=== PATIENT | male | born 1990 | race Caucasian/White ===

== ENCOUNTER 2017-07-18 00:57 | Emergency (ER) | payer OTHER ==
[2017-07-18 01:09] VITALS: BMI 24.3
[2017-07-18 01:12] VITALS: O2SAT 100
[2017-07-18] MEDS ORDERED: Lidocaine/Epi 1% 1:100000 20 ML IJ STA (01:42)
[2017-07-18] MEDS ORDERED: TDAP Vaccine 0.5 mL Syr IM ONE (02:56)
[2017-07-18] MEDS ORDERED: Bacitracin Ointment 30 GM TUBE TOP STA (02:56)
[2017-07-18 03:24] VITALS: BP 110/68; PULSE 76; RESP 18
[2017-07-18 03:25] VITALS: TEMP 98.2
--- NOTE | 2017-07-18 04:47 | ED PDOC ---
Arrival/HPI - General Chief Complaint: Abnormal Skin Integrity Time Seen by Provider: 07/18/17 01:42 Historian: Patient - History of Present Illness Narrative History of Present Illness (Text): 07/18/17 04:43 26 year old male, with no significant past medical history, presents to the emergency department complaining of a laceration above his right eyebrow. Patient states he was elbowed while playing basketball. Patient denies any fever , chills, chest pain, shortness of breath, nausea, vomiting, diarrhea, urinary symptoms, back pain, neck pain, headache, dizziness, or any other complaints. Time/Duration: Prior to Arrival Symptom Onset: Sudden Symptom Course: Unchanged Activities at Onset: Light Context: Exertion Past Medical History - Provider Review Nursing Documentation Reviewed: Yes - Psychiatric Hx Substance Use: No Family/Social History - Physician Review Nursing Documentation Reviewed: Yes Family/Social History: Unknown Family HX Smoking Status: Never Smoked Hx Alcohol Use: No Hx Substance Use: No Allergies/Home Meds Allergies/Adverse Reactions: Allergies No Known Allergies Allergy (Verified 07/18/17 01:09) Home Medications: Home Meds Medication Instructions Recorded Confirmed No Known Home Med 07/18/17 07/18/17 Review of Systems - Physician Review All systems were reviewed & negative as marked: Yes - Review of Systems Constitutional: Normal Eyes: Normal ENT: Normal Respiratory: Normal. absent: SOB, Cough Cardiovascular: Normal. absent: Chest Pain Gastrointestinal: Normal. absent: Abdominal Pain, Diarrhea, Nausea, Vomiting Genitourinary Male: Normal. absent: Dysuria, Frequency, Hematuria, Urinary Output Changes Musculoskeletal: Normal. absent: Back Pain, Neck Pain Skin: Laceration (Rght eyebrow). absent: Rash Neurological: Normal. absent: Headache, Dizziness Endocrine: Normal Hemo/Lymphatic: Normal Psychiatric: Normal Physical Exam Vital Signs Reviewed: Yes Vital Signs Temp Pulse Resp BP Pulse Ox 07/18/17 03:24 98.2 F 76 18 110/68 100 07/18/17 01:10 98.3 F 70 16 102/65 100 Temperature: Afebrile Blood Pressure: Normal Pulse: Regular Respiratory Rate: Normal Appearance: Positive for: Well-Appearing, Non-Toxic, Comfortable Pain Distress: None Mental Status: Positive for: Alert and Oriented X 3 - Systems Exam Head: Present: Atraumatic, Normocephalic, Laceration (Right eyebrow) Pupils: Present: PERRL Extroacular Muscles: Present: EOMI Conjunctiva: Present: Normal Mouth: Present: Moist Mucous Membranes Neck: Present: Normal Range of Motion Respiratory/Chest: Present: Clear to Auscultation, Good Air Exchange. No: Respiratory Distress, Accessory Muscle Use Cardiovascular: Present: Regular Rate and Rhythm, Normal S1, S2. No: Murmurs Abdomen: No: Tenderness, Distention, Peritoneal Signs Back: Present: Normal Inspection Upper Extremity: Present: Normal Inspection. No: Cyanosis, Edema Lower Extremity: Present: Normal Inspection. No: Edema Neurological: Present: GCS=15, CN II-XII Intact, Speech Normal Skin: Present: Warm, Dry, Normal Color. No: Rashes Psychiatric: Present: Alert, Oriented x 3, Normal Insight, Normal Concentration Medical Decision Making ED Course and Treatment: 07/18/17 04:46 Impression: 26 year old male who presents to the emergency department complaining of a laceration above his right eyebrow Plan: -- Bacitracin -- Lidocaine -- TDAB Vaccine -- Reassess and disposition Progress Notes: PROCEDURE: LACERATION REPAIR Performed by the emergency provider Location: right eyebrow Length: 2 cm Description: "clean wound edges","no foreign bodies" Distal CMS: Normal. No deficits. Neurovascularly intact. Anesthesia: Lidocaine 1% Preparation: The wound was cleaned with NS and [place]. The area was prepped and draped in the usual sterile fashion. Exploration: The wound was explored and no foreign bodies were found. Procedure: The wound was closed with 5.0 nylon. There was {good / appropriate / adequate / loose} approximation. In total, 5 sutures were used. Post-Procedure: Good closure and hemostasis. The patient tolerated the procedure well and there were no complications. CSM remains intact. Post procedure dressing applied. Pt will follow up with PMD for suture removal. - Medication Orders Current Medication Orders: Discontinued Medications Bacitracin (Bacitracin) 1 gm TOP STAT STA Stop: 07/18/17 02:57 Last Admin: 07/18/17 03:17 Dose: 1 g Lidocaine/Epinephrine (Lidocaine/Epi 1% 1:224372 20 Ml) 7 ml IJ STAT STA Stop: 07/18/17 01:43 Tetanus/Reduced Diphtheria/Acell Pertussis (Boostrix Vaccine Inj) 0.5 ml IM .ONCE ONE Stop: 07/18/17 02:57 Last Admin: 07/18/17 03:14 Dose: 0.5 ml Immunization Registry Document 07/18/17 03:14 FIDENCIO (Rec: 07/18/17 03:14 FIDENCIO [id number]) Immunization Registry Consent Date 07/18/17 - Scribe Statement The provider has reviewed the documentation as recorded by the Scribe Kina Crespo All medical record entries made by the Scribe were at my direction and personally dictated by me. I have reviewed the chart and agree that the record accurately reflects my personal performance of the history, physical exam, medical decision making, and the department course for this patient. I have also personally directed, reviewed, and agree with the discharge instructions and disposition. Disposition/Present on Arrival - Present on Arrival Any Indicators Present on Arrival: No History of DVT/PE: No History of Uncontrolled Diabetes: No Urinary Catheter: No History of Decub. Ulcer: No History Surgical Site Infection Following: None - Disposition Have Diagnosis and Disposition been Completed?: Yes Diagnosis: Laceration of forehead Disposition: HOME/ ROUTINE Disposition Time: 03:00 Condition: IMPROVED Discharge Instructions (ExitCare): Laceration Repair With Stitches (DC) Additional Instructions: Thank you for letting us take care of you today. The emergency medical care you received today was directed at your acute symptoms. If you were prescribed any medication, please fill it and take as directed. It may take several days for your symptoms to resolve. Return to the Emergency Department if your symptoms worsen, do not improve, or if you have any other problems. Please contact your doctor or call one of the physicians/clinics you have been referred to that are listed on the Patient Visit Information form that is included in your discharge packet. Bring any paperwork you were given at discharge with you along with any medications you are taking to your follow up visit. Our treatment cannot replace ongoing medical care by a primary care provider (PCP) outside of the emergency department. Thank you for allowing the [facility] team to be part of your care today. Follow up with your primary doctor in 5 days for suture removal. Forms: [employer] ([place])
== END 2017-07-18 03:24 | disposition home or self-care (01) ==
LOC: ED 00:57
DX: S01.111A Laceration without foreign body of right eyelid and periocular area, initial encounter (principal); W50.0XXA Accidental hit or strike by another person, initial encounter; Y93.67 Activity, basketball; Y92.39 Other specified sports and athletic area as the place of occurrence of the external cause; Z23 Encounter for immunization